=== PATIENT | male | born 1950 | race Caucasian/White ===

== ENCOUNTER → 2016-10-03 | Outpatient (CLI) | payer OTHER ==
[~2016-10-03] VITALS: Ht 186.7 cm; Wt 60.3 kg
[~2016-10-03] MED LIST: B COMPLETE1 EACH PO; DOXYCYCLINE HY100 MG PO; GALZIN25 MG PO; MULTI-DAY VITA1 EACH PO; NAPROSYN500 MG PO; NOHOMEMEDS; VITAMIN C100 MG/1 M PO; VITAMIN D10000 UNIT PO
[2016-10-03 09:19] LABS: PROTHROMBIN TIME 10.5 (9.2-11.2); PTT 28.1 (25-32)
== END | disposition home or self-care (01) ==
LOC: OPR 08:26 → EDSTATUS 09:00
PROVIDERS: Family Medicine
PROC: 0BBC3ZX Excision of Right Upper Lung Lobe, Percutaneous Approach, Diagnostic (ICD-10-PCS; principal; 2016-10-03)
DX: J98.4 Other disorders of lung (principal); R91.8 Other nonspecific abnormal finding of lung field
CPT/HCPCS: 71010; 77012; 85610; 85730; 88305; 88341 TC; 88342 TC; J3010

== ENCOUNTER 2018-01-31 03:43 | Emergency (ER) | payer OTHER ==
[~2018-01-31] VITALS: Ht 188 cm; Wt 64.2 kg
[2018-01-31 04:23] LABS: APPEARANCE CLEAR ((CLEAR)); BILIRUBIN NEGATIVE; BLOOD NEGATIVE; COLOR YELLOW ((YELLOW)); GLUCOSE (STRIP) NEGATIVE; KETONES 20; LEUKOCYTES NEGATIVE; NITRITE NEGATIVE; PROTEIN (STRIP) NEGATIVE; UCUL ADDED? NO; UROBILINOGEN 0.2 MG/DL (0.2-1.0)
[2018-01-31 05:29] LABS: HEMATOCRIT 41.9 % (38.0-50.0); HEMOGLOBIN 14.5 G/DL (12.5-16.6); MCH 31.3 PG (29.0-34.0); MCHC 34.6 G/DL (30.0-36.0); MCV 90.5 FL (86-99); PLATELET COUNT 162 K/uL (156-360); RBC DIS.WIDTH-CV 14.4 % (11.8-14.6); RBC DIS.WIDTH-SD 48.3 % (39-53); RED BLOOD COUNT 4.63 M/uL (4.00-5.50); WHITE BLOOD COUNT 9.3 K/uL (4.1-10.2)
[2018-01-31 05:42] LABS: CHLORIDE 103 mEq/L (99-109); SODIUM 140 mEq/L (136-147)
[2018-01-31 05:44] LABS: GLUCOSE 107 mg/dL (70-99)
[2018-01-31 05:48] LABS: CREATININE 1.2 mg/dL (0.6-1.3); GFR ESTIMATE (CALCULATED) > 59 mL/min/ (58.99-99999)
[2018-01-31 05:49] LABS: UREA NITROGEN (BUN) 26 mg/dL (9-23)
[2018-01-31] MEDS ORDERED: PERCOCET 5/31 TABLET PO (06:29)
[2018-01-31] MEDS ORDERED: FLOMAX0.4 MG PO (06:29)
[2018-01-31] MEDS ORDERED: MOTRIN600 MG PO (06:29)
[2018-01-31] MEDS ORDERED: ZOFRAN4 MG PO (06:30)
[2018-01-31 06:49] VITALS: BP 135/59
== END 2018-01-31 06:50 | disposition home or self-care (01) ==
LOC: EME 03:43
DX: N20.1 Calculus of ureter (principal); Z88.5 Allergy status to narcotic agent
CPT/HCPCS: 74176; 80048; 81003; 85027; 99281; 99284; J2405; J3010; J7030

== ENCOUNTER 2018-01-31 08:49 | Emergency (ER) | payer OTHER ==
[~2018-01-31] VITALS: Ht 188 cm; Wt 64.2 kg
[~2018-01-31 08:49] MED LIST changes: +FLOMAX0.4 MG PO; +MOTRIN600 MG PO; +PERCOCET 5/31 TABLET PO; +ZOFRAN4 MG PO
[2018-01-31 12:24] VITALS: BP 123/70
== END 2018-01-31 12:39 | disposition home or self-care (01) ==
LOC: EME 08:49
DX: N20.1 Calculus of ureter (principal); Z85.46 Personal history of malignant neoplasm of prostate; Z88.5 Allergy status to narcotic agent
CPT/HCPCS: 81003; 99281; 99284; J1885; J2405; J3010; J7030

== ENCOUNTER 2018-02-02 03:41 | Emergency (ER) | payer OTHER ==
[~2018-02-02] VITALS: Ht 188 cm; Wt 68.9 kg
[2018-02-02 04:22] LABS: APPEARANCE CLEAR ((CLEAR)); BILIRUBIN NEGATIVE; BLOOD MODERATE; COLOR STRAW ((YELLOW)); GLUCOSE (STRIP) NEGATIVE; KETONES NEGATIVE; LEUKOCYTES NEGATIVE; NITRITE NEGATIVE; PROTEIN (STRIP) NEGATIVE; SPECIFIC GRAVITY 1.004 (1.000-1.030); UROBILINOGEN 0.2 MG/DL (0.2-1.0)
[2018-02-02 04:28] LABS: BACTERIA NONE SEEN /HPF; EPITHELIAL CELLS RARE /HPF; MUCUS NONE SEEN /LPF; RED BLOOD CELLS 0-5 /HPF (0-5); UCUL ADDED? NO; WHITE BLOOD CELLS 0-5 /HPF (0-5)
[2018-02-02 06:51] LABS: HEMOGLOBIN 14.4 G/DL (12.5-16.6); MCH 31.2 PG (29.0-34.0); MCHC 35.1 G/DL (30.0-36.0); MCV 88.7 FL (86-99); PLATELET COUNT 170 K/uL (156-360); RBC DIS.WIDTH-CV 14.3 % (11.8-14.6); RBC DIS.WIDTH-SD 46.5 % (39-53); RED BLOOD COUNT 4.62 M/uL (4.00-5.50); WHITE BLOOD COUNT 10.5 K/uL (4.1-10.2)
[2018-02-02 07:21] LABS: ALBUMIN 3.9 G/DL (3.2-4.8); ALKALINE PHOSPHATASE 52 IU/L (3-129); ALT (GPT) 15 IU/L (3-49); AST (GOT) 18 IU/L (2-34); CHLORIDE 106 MEQ/L (99-109); CREATININE 1.1 MG/DL (0.6-1.3); GFR ESTIMATE (CALCULATED) > 59 mL/min/ (58.99-99999); GLUCOSE 107 mg/dL (70-99); POTASSIUM 4.5 MEQ/L (3.7-5.4); SODIUM 140 MEQ/L (136-147); TOTAL BILIRUBIN 0.6 MG/DL (0.0-1.0); TOTAL PROTEIN 6.9 G/DL (6.4-8.3); UREA NITROGEN (BUN) 15 mg/dL (9-23)
[2018-02-02 07:38] VITALS: BP 125/73
== END 2018-02-02 07:41 | disposition home or self-care (01) ==
LOC: EME 03:41
PROVIDERS: Emergency Medicine
DX: R33.9 Retention of urine, unspecified (principal); R31.9 Hematuria, unspecified; Z87.442 Personal history of urinary calculi; Z90.79 Acquired absence of other genital organ(s); Z85.46 Personal history of malignant neoplasm of prostate; Z88.5 Allergy status to narcotic agent
CPT/HCPCS: 80053; 81003; 85027; 99281; 99284

== ENCOUNTER 2018-02-02 18:28 | Emergency (ER) | payer OTHER ==
[~2018-02-02] VITALS: Ht 188 cm; Wt 72.5 kg
[2018-02-02 19:10] LABS: HEMATOCRIT 38.4 % (38.0-50.0); HEMOGLOBIN 13.5 G/DL (12.5-16.6); MCH 31.1 PG (29.0-34.0); MCHC 35.2 G/DL (30.0-36.0); MCV 88.5 FL (86-99); PLATELET COUNT 162 K/uL (156-360); RBC DIS.WIDTH-CV 14.3 % (11.8-14.6); RBC DIS.WIDTH-SD 46.2 % (39-53); RED BLOOD COUNT 4.34 M/uL (4.00-5.50); WHITE BLOOD COUNT 9.6 K/uL (4.1-10.2)
[2018-02-02 19:43] LABS: CHLORIDE 102 mEq/L (99-109); POTASSIUM 3.9 mEq/L (3.7-5.4); SODIUM 137 mEq/L (136-147)
[2018-02-02 19:45] LABS: GLUCOSE 124 mg/dL (70-99)
[2018-02-02 19:49] LABS: CREATININE 0.9 mg/dL (0.6-1.3); GFR ESTIMATE (CALCULATED) > 59 mL/min/ (58.99-99999)
[2018-02-02 19:50] LABS: UREA NITROGEN (BUN) 12 mg/dL (9-23)
[2018-02-02 20:23] LABS: APPEARANCE CLEAR ((CLEAR)); BILIRUBIN NEGATIVE; BLOOD MODERATE; COLOR STRAW ((YELLOW)); GLUCOSE (STRIP) NEGATIVE; KETONES NEGATIVE; LEUKOCYTES TRACE; NITRITE NEGATIVE; PROTEIN (STRIP) NEGATIVE; SPECIFIC GRAVITY 1.004 (1.000-1.030); UROBILINOGEN 0.2 MG/DL (0.2-1.0)
[2018-02-02 20:27] LABS: BACTERIA RARE /HPF; EPITHELIAL CELLS NONE SEEN /HPF; MUCUS NONE SEEN /LPF; RED BLOOD CELLS 0-5 /HPF (0-5); UCUL ADDED? NO; WHITE BLOOD CELLS 0-5 /HPF (0-5)
[2018-02-02 21:51] VITALS: BP 140/81
== END 2018-02-02 21:52 | disposition home or self-care (01) ==
LOC: EME 18:28
PROVIDERS: Emergency Medicine
PROC: 0T9B70Z Drainage of Bladder with Drainage Device, Via Natural or Artificial Opening (ICD-10-PCS; principal; 2018-02-02)
DX: R33.9 Retention of urine, unspecified (principal); Z87.442 Personal history of urinary calculi; Z88.5 Allergy status to narcotic agent; Z90.79 Acquired absence of other genital organ(s)
CPT/HCPCS: 80048; 81003; 85027; 99281; 99284

== ENCOUNTER → 2018-02-03 | Outpatient (CLI) | payer MEDICARE, OTHER | END | disposition home or self-care (01) | LOC: CDC 14:09 | DX: Z01.810 Encounter for preprocedural cardiovascular examination (principal); I45.10 Unspecified right bundle-branch block; J98.4 Other disorders of lung; R94.31 Abnormal electrocardiogram [ECG] [EKG] | CPT/HCPCS: 93000 ==